=== PATIENT | female | born 2000 | race Caucasian/White ===

== ENCOUNTER 2022-07-02 02:56 | Emergency (ER) | payer OTHER ==
[~2022-07-02] VITALS: Ht 165.1 cm; Wt 70.3 kg
--- NOTE | 2022-07-02 03:58 | NUR ---
Presenting to the ER complaining of a sharp upper abdominal pain that started on Saturday and has been present since. Denied N/V. placed in bed 2 er. VSS, will cont to monitor
[2022-07-02] MEDS ORDERED: ONDANSETRON HCL/PF 4 MG/2 ML VIAL ONE (04:00)
[2022-07-02] MEDS ORDERED: MORPHINE SULFATE INJ 4 MG/ML DISP.SYRIN ONE (04:00)
[2022-07-02] MEDS ORDERED: MAG HYDROX/AL HYDROX/SIMETH 30 ML UDC ONE (04:00)
[2022-07-02] MEDS: ONDANSETRON HCL/PF 4 MG/2 ML VIAL IVP ONE (04:05)
[2022-07-02] MEDS: IV NS 0.9% 1,000 ML BAG IV ONE (04:05)
[2022-07-02] MEDS: MORPHINE SULFATE INJ 2 MG/ML DISP.SYRIN IV ONE (04:05)
[2022-07-02] MEDS ORDERED: PROCHLORPERAZINE EDISYLATE 10 MG/2 ML VIAL ONE (04:16)
[2022-07-02] MEDS: PROCHLORPERAZINE EDISYLATE 10 MG/2 ML VIAL IVP ONE (04:22)
[2022-07-02] MEDS: PROMETHAZINE HCL 25 MG TABLET PO SCH (04:22)
--- NOTE | 2022-07-02 05:02 | NUR ---
BACK FROM CT
[2022-07-02 05:17] LABS: BASOPHILS # (AUTO) 0.1 K/uL (0.0-0.2); BASOPHILS % (AUTO) 0.5 % (0.0-2.0); HEMATOCRIT 44 % (33-45); HEMOGLOBIN 14.6 g/dL (11.5-14.8); LYMPHOCYTES # (AUTO) 1.8 K/uL (0.8-4.8); LYMPHOCYTES % (AUTO) 14.5 % (20.0-44.0); MEAN CORPUSCULAR HGB CONC 33 g/dl (31.0-36.0); MEAN CORPUSCULAR VOLUME 94 fL (82-100); MONOCYTES # (AUTO) 0.7 K/uL (0.1-1.30); MONOCYTES % (AUTO) 5.7 % (2.0-12.0); NEUTROPHILS # (AUTO) 9.9 K/uL (1.8-8.9); NEUTROPHILS % (AUTO) 78.3 % (43.0-81.0); PLATELET COUNT (AUTO) 282 K/uL (150-450); RED BLOOD CELL COUNT(AUTO) 4.75 MIL/uL (4.0-5.2); WHITE BLOOD COUNT (AUTO) 12.7 K/uL (4.3-11.0)
[2022-07-02] MEDS: MAG HYDROX/AL HYDROX/SIMETH 30 ML UDC PO ONE (05:19)
[2022-07-02] MEDS ORDERED: PROC10TA29 PO (05:27)
[2022-07-02 05:34] LABS: ALBUMIN 4.6 g/dL (3.4-5.0); BILIRUBIN,DIRECT 0.2 mg/dL (0.0-0.2); BILIRUBIN,TOTAL 0.5 mg/dL (0.2-1.0); CREATININE 1.1 mg/dL (0.6-1.3); POTASSIUM 3.3 mmol/L (3.5-5.1); TOTAL PROTEIN, SERUM 8.2 g/dL (6.4-8.2)
[2022-07-02 06:00] VITALS: BP 118/79
--- NOTE | 2022-07-02 06:02 | NUR ---
PT OK TO DISCHARGE PER DR NIEVES. Patient discharged to home in stable condition. Written and verbal after care instructions given. Patient verbalizes understanding of instruction.Patient is awake and alert to self, day, and place. PT ambulatory with a steady gait
== END 2022-07-02 06:08 | disposition home or self-care (01) ==
LOC: ER 03:00
DX: K29.70 Gastritis, unspecified, without bleeding (principal); R11.2 Nausea with vomiting, unspecified; F17.200 Nicotine dependence, unspecified, uncomplicated; Z79.899 Other long term (current) drug therapy
CPT/HCPCS: 99285; 74176; 96374; 96375; 96361; 85025; 80048; 83690; 80076; 36415; 84702; J0780; J2270; J2405; J7030